=== PATIENT | male | born 1985 | race Hispanic/Latino ===

== ENCOUNTER 2017-04-08 03:11 | Emergency (ER) | payer BC ==
[2017-04-08 03:24] VITALS: RESP 18; TEMP 97.4
[2017-04-08] MEDS ORDERED: DiphenhydrAMINE 50 mg/ml Inj IVP STA (03:26)
[2017-04-08] MEDS ORDERED: DiphenhydrAMINE 50 mg/ml Inj ONE (03:28)
--- NOTE | 2017-04-08 03:41 | C.PDOC ---
History Of Present Illness 31 year old male presents to the ER with a sudden onset of diffuse itchiness and tearing from the eyes. Denies difficulty breathing or difficulty swallowing. Chief Complaint (Nursing): Allergic Reaction History Per: Patient History/Exam Limitations: no limitations Onset/Duration Of Symptoms: Sudden Onset Current Symptoms Are (Timing): Still Present Possible Cause: Unknown Associated Symptoms: Skin Rash, Itching. denies: Swelling, Dyspnea, Trouble Swallowing Home/EMS Treatment: None Recent travel outside of the [place]: No Past Medical History Reviewed: Historical Data, Nursing Documentation, Vital Signs Vital Signs: Last Vital Signs Temp 97.4 F L 04/08/17 03:18 Pulse 75 04/08/17 05:22 Resp 18 04/08/17 05:22 BP 127/75 04/08/17 05:22 Pulse Ox 99 04/08/17 05:22 - Medical History PMH: No Chronic Diseases Surgical History: No Surg Hx Family History: States: Unknown Family Hx - Social History Hx Alcohol Use: Yes Hx Substance Use: No - Immunization History Hx Tetanus Toxoid Vaccination: No Hx Influenza Vaccination: Yes Hx Pneumococcal Vaccination: No Review Of Systems Eyes: Positive for: Other (tearing) ENT: Negative for: Throat Pain, Throat Swelling Respiratory: Negative for: Shortness of Breath, Wheezing Skin: Positive for: Rash Physical Exam - Physical Exam Appears: Non-toxic, No Acute Distress Skin: Warm, Dry, Rash (Generalized urticaria to trunk and extremities) Head: Atraumatic, Normacephalic Eye(s): bilateral: Normal Inspection Oral Mucosa: Moist Throat: Normal, No Erythema, Other (Swelling) Neck: Normal, No Midline Cervical Tenderness, No Paracervical Tenderness, Supple Chest: Symmetrical, No Tenderness Cardiovascular: Rhythm Regular Respiratory: Normal Breath Sounds, No Rales, No Rhonchi, No Stridor, No Wheezing Gastrointestinal/Abdominal: Soft, No Tenderness Neurological/Psych: Oriented x3, Normal Speech ED Course And Treatment O2 Sat by Pulse Oximetry: 96 (Room air) Pulse Ox Interpretation: Normal Progress Note: Benadryl, pepcid, and solumedrol administered. Disposition - Disposition Referrals: Non [facility] Provider, [Primary Care Provider] - Disposition: HOME/ ROUTINE Disposition Time: 05:30 Condition: IMPROVED Prescriptions: DiphenhydrAMINE [Benadryl] 50 mg PO Q6 #20 cap Methylprednisolone [Medrol Dose Pack (21 tabs)] 4 mg PO DAILY #21 mg Instructions: Allergies (ED) Forms: [facility] (Cit[place]) - POA Present On Arrival: None - Clinical Impression Clinical Impression: Allergic reaction - Scribe Statement The provider has reviewed the documentation as recorded by the Scribe Elijah Mills All medical record entries made by the Scribe were at my direction and personally dictated by me. I have reviewed the chart and agree that the record accurately reflects my personal performance of the history, physical exam, medical decision making, and the department course for this patient. I have also personally directed, reviewed, and agree with the discharge instructions and disposition.
[2017-04-08 05:23] VITALS: BP 127/75; PULSE 75
[2017-04-08 14:18] VITALS: O2SAT 96
== END 2017-04-08 05:23 | disposition home or self-care (01) ==
LOC: SUPCPDRO 03:11 → C.ER 03:11
DX: T78.40XA Allergy, unspecified, initial encounter (principal); X58.XXXA Exposure to other specified factors, initial encounter
CPT/HCPCS: 96374; 96375; 99284; J1200; J2930